=== PATIENT | male | born 1955 | race Caucasian/White ===

== ENCOUNTER 2018-01-09 00:02 | Observation (INO) | payer OTHER ==
[~2018-01-09] VITALS: Ht 180.3 cm; Wt 79.4 kg
[2018-01-09 00:33] LABS: BASOPHILS # (AUTO) 0.1 (0.0-0.1); BASOPHILS % 0.7 % (0.0-1.0); EOSINOPHILS # (AUTO) 0.1 (0.0-0.4); EOSINOPHILS % 0.7 % (0.0-6.0); HEMATOCRIT 39.6 % (38.2-49.6); LYMPHOCYTES # (AUTO) 1.4 (1.0-3.2); LYMPHOCYTES % 15.5 % (18.0-39.1); MEAN CORPUSCULAR HGB CONC 32.8 g/dL (31-35); MEAN CORPUSCULAR VOLUME 88.4 fL (81-99); MONOCYTES # (AUTO) 0.6 (0.2-0.8); MONOCYTES % 6.9 % (4.4-11.3); NEUTROPHILS # (AUTO) 6.8 (2.1-6.9); NEUTROPHILS % 75.4 % (38.7-80.0); PLATELET COUNT 222 x10e3/uL (140-360); RED BLOOD COUNT 4.48 x10e6/uL (4.3-5.7); RED CELL DISTRIBUTION WIDTH 16.3 % (11.7-14.4)
[2018-01-09 00:38] LABS: BILIRUBIN,URINE NEGATIVE (NEGATIVE); CLARITY,URINE TURBID (CLEAR); COLOR,URINE YELLOW (YELLOW); KETONES,URINE NEGATIVE (NEGATIVE); LEUKOCYTE ESTERASE ,URINE NEGATIVE (NEGATIVE); NITRITE,URINE NEGATIVE (NEGATIVE); PROTEIN,URINE DIPSTICK 1+ (NEGATIVE); URINE UROBILINOGEN 8 mg/dL (0.2 - 1)
[2018-01-09 00:41] LABS: AMORPHOUS SEDIMENT,URINE MANY (FEW); MUCUS,URINE FEW (RARE); WBC,URINE (MAN) 0-5 /HPF (0-5)
[2018-01-09 00:57] LABS: ALANINE AMINOTRANSFERASE 189 IU/L (0-55); ALBUMIN 3.8 g/dL (3.5-5.0); ALBUMIN/GLOBULIN RATIO 1.1 (0.8-2.0); ALKALINE PHOSPHATASE 70 IU/L (40-150); AMYLASE 34 U/L (25-125); ANION GAP 14.9 mmol/L (8-16); BLOOD UREA NITROGEN 16 mg/dL (7-26); BUN/CREATININE RATIO 15 (6-25); CALCIUM 9.1 mg/dL (8.4-10.2); CARBON DIOXIDE 22 mmol/L (22-29); CHLORIDE 107 mmol/L (98-107); CREATINE KINASE 151 IU/L (30-200); CREATININE, SERUM 1.09 mg/dL (0.72-1.25); EST GLOMERULAR FILTRATION RATE > 60 ML/MIN (60-); GLUCOSE 158 mg/dL (74-118); LIPASE 43 U/L (8-78); POTASSIUM 3.9 mmol/L (3.5-5.1); SODIUM 140 mmol/L (136-145)
--- NOTE | 2018-01-09 02:41 | Diagnostic Imaging Report ---
EXAM: US GALLBLADDER DATE: 01/09/2018 12:00 AM INDICATION: Right upper quadrant pain, COMPARISON: None TECHNIQUE: Transverse and longitudinal stover scale and color doppler sonographic images of the upper abdomen were obtained. FINDINGS: LIVER 15 cm in the right midclavicular line. Increased echogenicity, normal contour, no masses. GALLBLADDER Filled with gallstones. The wall is borderline thickened at 3 mm. No pericholecystic fluid. Negative sonographic Palumbo's sign. BILE DUCTS No intra nor extra-hepatic biliary dilation. Common bile duct measures 0.5 cm PANCREAS: Not visualized due to overlying bowel gas RIGHT KIDNEY: 10.7 cm Echogenicity: Normal Collecting System: No hydronephrosis Stones: None Cyst/Mass: 1.0 x 0.9 x 0.6 cm renal cyst containing an echogenic 4 to 5 mm focus. VESSELS: Aorta: Visualized portions are within normal size limits Inferior Vena Cava: Visualized portions are normal Main Portal Vein: 1.3 cm, hepatopetal flow. FREE FLUID: None IMPRESSION: 1. Cholelithiasis with borderline wall thickening but no pericholecystic fluid or Palumbo's sign. If there is ongoing concern for acute cholecystitis, consider follow-up HIDA. 2. Minimally complex right renal cyst with suspected layering milk of calcium. Consider 6 month follow-up to assess stability. 3. Hepatic steatosis. Signed by: Dr Eli Baez MD on 01/09/2018 2:38 AM
[2018-01-09] MEDS ORDERED: ONDANSETRON HCL INJ 2 MG/ML VIAL IV PRN (03:30)
[2018-01-09] MEDS ORDERED: MORPHINE SULFATE 2 MG/ML SYR IV PRN (03:30)
[2018-01-09] MEDS: PIPER-TAZ 3.375 GM / NS 50ML IV SCH ×4 (03:59→22:35)
[2018-01-09] MEDS: SODIUM CHLORIDE 0.9% 1000ML 1,000 ML IV SCH ×3 (03:59→22:35)
[2018-01-09 04:00] VITALS: BP 132/82
[2018-01-09] MEDS ORDERED: OMEPRAZOLE40 MG PO (05:56)
[2018-01-09 08:13] VITALS: BP 144/92
[2018-01-09 12:00] VITALS: BP 151/83
[2018-01-09] MEDS ORDERED: BUPIVACAINE 0.25%/EPI 30ML SDV INJ ONE (12:27)
[2018-01-09] MEDS ORDERED: HYDROCODONE/APAP 7.5MG-325MG 1 EA TAB PO PRN (14:30)
--- NOTE | 2018-01-09 14:57 | Operative Report ---
DATE OF PROCEDURE: January 09, 2018 PREOPERATIVE DIAGNOSIS: Cholecystitis and cholelithiasis. POSTOPERATIVE DIAGNOSIS: Cholecystitis and cholelithiasis. OPERATION PERFORMED: Laparoscopic cholecystectomy. CUTTING AND BONING SUPERVISOR: Dr. Femi Holloway ANESTHESIA: General endotracheal. COMPLICATIONS: None. ESTIMATED BLOOD LOSS: Minimal. DESCRIPTION OF PROCEDURE: With the patient lying in bed in the supine position and under good general endotracheal anesthesia, the abdomen was prepped with Betadine solution and draped in the usual manner. A Veress needle was introduced into the umbilicus and pneumoperitoneum was established without any difficulty. An 11-mm trocar was placed into the umbilicus and a 10 mm video laparoscope was placed into the intra-abdominal cavity. Under direct vision, three 5-mm trocars were placed in the right subcostal region. Video laparoscopy at this point revealed a gallbladder that contained multiple stones, and there were some adhesions at the neck of the gallbladder. The rest of the abdominal exploration was otherwise within normal limits. All of the adhesions to the gallbladder were then slowly and carefully taken down. The peritoneum overlying the neck of the gallbladder was then opened and the cystic duct was identified. The cystic duct was followed to its junction with the common duct. The cystic duct was then circumferentially dissected away from the common duct, doubly clipped and divided. The cystic artery was similarly doubly clipped and divided. The gallbladder was then slowly and carefully taken off the liver bed using the cautery scissors and perfect hemostasis was ascertained. Gallbladder was grasped through the umbilical port and removed. Video laparoscopy was then again carried out. The liver bed was found to perfectly dry. All of the excess fluid was aspirated. The pneumoperitoneum was evacuated and all the trocars were removed under direct vision. The midline fascia at the umbilicus was closed with a figure-of-8 of 0 Vicryl. All layers were infiltrated on the way out with a solution of 0.25% Marcaine. Subcutaneous tissue was approximated with 3-0 Vicryl. The skin was closed with subcuticular 5-0 Vicryl. Benzoin, Steri-Strips and Band-Aids were applied. The sponge, lap needle count was correct. The patient tolerated the procedure well and returned to the recovery room in stable condition. Job#: [id number]
[2018-01-09] MEDS ORDERED: METOCLOPRAMIDE HCL 10 MG/2ML VIAL ONE (14:59)
[2018-01-09] MEDS ORDERED: ONDANSETRON HCL INJ 2 MG/ML VIAL ONE ×2 (14:59→17:21)
[2018-01-09] MEDS ORDERED: MORPHINE SULFATE 2 MG/ML SYR ONE (15:16)
[2018-01-09 16:00] VITALS: BP 146/85
[2018-01-09] MEDS ORDERED: KETOROLAC TROMETHAMINE 30 MG/ML VIAL ONE (17:21)
[2018-01-09] MEDS ORDERED: ROCURONIUM BROMIDE 10 MG/ML 5ML VIAL ONE (17:21)
[2018-01-09] MEDS ORDERED: LIDOCAINE HCL 2% LOCAL INJ 5 ML SDV VIAL INJ ONE (17:21)
[2018-01-09] MEDS ORDERED: PROPOFOL IV EMULSION 10 MG/ML 20 ML VIAL ONE (17:21)
[2018-01-09] MEDS ORDERED: SEVOFLURANE INHAL SOLN 250 ML PEN BTL ONE (17:21)
[2018-01-09] MEDS ORDERED: DEXAMETHASONE SOD PHOS INJ 4 MG/ML VIAL ONE (17:21)
[2018-01-09] MEDS ORDERED: MIDAZOLAM HCL 2 MG/2 ML VIAL ONE (19:17)
[2018-01-09] MEDS ORDERED: FENTANYL CITRATE/PF 100MCG/2 ML INJ ONE (19:17)
[2018-01-09 20:45] VITALS: BP 140/85
[2018-01-09 20:48] VITALS: BP 140/85
[2018-01-10] VITALS: BP 133/78
[2018-01-10] MEDS: SODIUM CHLORIDE 0.9% 1000ML 1,000 ML IV SCH ×3 (03:26→11:32)
[2018-01-10 04:00] VITALS: BP 122/76
[2018-01-10 05:02] LABS: BASOPHILS % 0.3 % (0.0-1.0); EOSINOPHILS % 0.2 % (0.0-6.0); HEMATOCRIT 38.3 % (38.2-49.6); HEMOGLOBIN 12.5 g/dL (14.0-18.0); LYMPHOCYTES % 10.8 % (18.0-39.1); MEAN CORPUSCULAR HEMOGLOBIN 29.3 pg (28-32); MEAN CORPUSCULAR HGB CONC 32.6 g/dL (31-35); MEAN CORPUSCULAR VOLUME 89.7 fL (81-99); MONOCYTES # (AUTO) 0.5 (0.2-0.8); MONOCYTES % 5.7 % (4.4-11.3); NEUTROPHILS # (AUTO) 7.5 (2.1-6.9); NEUTROPHILS % 82.2 % (38.7-80.0); PLATELET COUNT 198 x10e3/uL (140-360); RED BLOOD COUNT 4.27 x10e6/uL (4.3-5.7); RED CELL DISTRIBUTION WIDTH 16.8 % (11.7-14.4)
[2018-01-10 05:23] LABS: ALANINE AMINOTRANSFERASE 691 IU/L (0-55); ALBUMIN 3.2 g/dL (3.5-5.0); ALKALINE PHOSPHATASE 101 IU/L (40-150); AMYLASE 25 U/L (25-125); ANION GAP 14.4 mmol/L (8-16); BLOOD UREA NITROGEN 9 mg/dL (7-26); BUN/CREATININE RATIO 9 (6-25); CALCIUM 8.3 mg/dL (8.4-10.2); CARBON DIOXIDE 22 mmol/L (22-29); CHLORIDE 109 mmol/L (98-107); CREATININE, SERUM 0.98 mg/dL (0.72-1.25); EST GLOMERULAR FILTRATION RATE > 60 ML/MIN (60-); GLUCOSE 105 mg/dL (74-118); LIPASE 8 U/L (8-78); POTASSIUM 4.4 mmol/L (3.5-5.1); SODIUM 141 mmol/L (136-145)
[2018-01-10] MEDS: PIPER-TAZ 3.375 GM / NS 50ML IV SCH ×2 (05:58→14:23)
[2018-01-10 08:00] VITALS: BP 113/70
[2018-01-10 11:30] VITALS: BP 129/75
[2018-01-10] MEDS ORDERED: TYLENOL WITH C1 EACH PO (13:17)
[2018-01-10] MEDS ORDERED: LEVAQUIN500 MG PO (13:19)
[2018-01-10 16:00] VITALS: BP 144/82
== END 2018-01-10 18:40 | disposition home or self-care (01) ==
LOC: ER 00:02 → ERHOLD 03:32 → INTOOBSV 03:32 → MED/SURG 04:30
PROVIDERS: ADMIT Surgery; ATTEND Surgery
DX: K80.12 Calculus of gallbladder with acute and chronic cholecystitis without obstruction (principal); K82.8 Other specified diseases of gallbladder; K21.9 Gastro-esophageal reflux disease without esophagitis; Z88.6 Allergy status to analgesic agent
CPT/HCPCS: 36415 ×2; 47562; 76705; 80053 ×2; 81001; 82150 ×2; 82550; 82553; 83690 ×2; 84484; 85025 ×2; 88304; 93005; 99284; C1766; G0378 ×2; J1100; J1885; J2001; J2250; J2270; J2405; J2543 ×2; J2765; J7030 ×2